=== PATIENT | female | born 1990 | race Caucasian/White ===

== ENCOUNTER 2018-04-09 00:03 | Inpatient (IN) | payer BC ==
[2018-04-09] MEDS ORDERED: Butorphanol 1 MG/ML SDV IVPUSH PRN (00:28)
[2018-04-09] MEDS ORDERED: Water For Irrigation,Sterile 1,000 ML Container IRR PRN (00:28)
[2018-04-09] MEDS ORDERED: Misoprostol 200 MCG Tab PO PRN (00:28)
[2018-04-09] MEDS ORDERED: Tranexamic Acid 1,000 MG in Sodium Chloride 0.9% 100 ML IV PRN (00:28)
[2018-04-09] MEDS ORDERED: Sodium Chloride 0.9% 10 ML Syringe FLUSH PRN (00:28)
[2018-04-09] MEDS ORDERED: Nalbuphine 10 MG/1 ML Vial IVPUSH PRN (00:28)
[2018-04-09] MEDS ORDERED: Terbutaline 1 MG/ML SDV SUBCUT PRN (00:28)
[2018-04-09] MEDS ORDERED: Sodium Chloride 0.9% 2.5 ML Syringe FLUSH PRN (00:28)
[2018-04-09] MEDS ORDERED: Lidocaine 1% 50 ML MDV INJECT PRN (00:28)
[2018-04-09] MEDS ORDERED: Ondansetron 4 MG/2 ML SDV IV PRN (00:28)
[2018-04-09] MEDS ORDERED: Carboprost Tromethamine 250 MCG/1 ML Amp IM PRN (00:28)
[2018-04-09] MEDS ORDERED: Methylergonovine 0.2 MG/1 ML Amp IM PRN (00:28)
[2018-04-09] MEDS ORDERED: Oxytocin/0.9 % Sodium Chloride 30 UNIT/500 ML BAG IV SCH ×2 (00:30)
[2018-04-09] MEDS: Misoprostol 25 MCG (1/4 of 100 MCG) Tab VAG PRN ×2 (00:53→05:05)
[2018-04-09] MEDS: Lactated Ringers 1,000 ML IV SCH ×3 (12:25→20:21)
[2018-04-09] MEDS ORDERED: Ropivacaine 0.2% 2 MG/ML 20 ML SDV ONE (15:54)
[2018-04-09] MEDS ORDERED: Acetaminophen 500 MG Tab PO ONE (20:02)
[2018-04-09] MEDS ORDERED: Ampicillin 2 GM in Sodium Chloride 0.9% 100 ML IV ONE (20:02)
[2018-04-09] MEDS ORDERED: Acetaminophen 1,000 MG in Premix Bag 1 BAG IV ONE (22:46)
[2018-04-09] MEDS ORDERED: Clindamycin Phosphate in D5W 900 MG in Premix Bag 1 BAG IV ONE ×2 (23:52)
[2018-04-10] MEDS ORDERED: Lidocaine 2% 5 ML SDV ONE (00:14)
[2018-04-10] MEDS ORDERED: Oxytocin 10 Units/1 ML SDV ONE ×3 (00:14→01:42)
[2018-04-10] MEDS ORDERED: Ondansetron 4 MG/2 ML SDV ONE (00:14)
[2018-04-10] MEDS ORDERED: Propofol 200 MG/20 ML SDV ONE (00:15)
[2018-04-10] MEDS ORDERED: Morphine PF 1 MG/ML Amp ONE (01:05)
[2018-04-10] MEDS ORDERED: fentaNYL 100 MCG/2 ML SDV IVPUSH PRN (01:10)
[2018-04-10] MEDS ORDERED: Sodium Chloride 0.9% 20 ML ONE (01:10)
[2018-04-10] MEDS ORDERED: Acetaminophen/oxyCODONE 325-5 MG Tab PO PRN ×3 (01:10→02:06)
[2018-04-10] MEDS ORDERED: Nalbuphine 10 MG/1 ML Vial IVPUSH PRN (01:10)
--- NOTE | 2018-04-10 01:14 | PCM.PREANE ---
Preanesthetic Assessment - Anesthesia/Transfusion/Family Hx Anesthesia History: Prior Anesthesia Without Reaction Family History of Anesthesia Reaction: No Transfusion History: No Prior Transfusion(s) - Review of Systems General: No Symptoms Pulmonary: No Symptoms Cardiovascular: No Symptoms Gastrointestinal: No Symptoms Neurological: No Symptoms Other: Reports: None - Physical Assessment NPO Status Date: 04/09/18 NPO Status Time: 14:00 (clear liq) Temperature: 38.8 C Vital Signs: Last Vital Signs Temp 38.8 C H 04/09/18 20:18 Pulse Resp BP Pulse Ox Height: 1.7 m Weight: 93.894 kg ASA Class: 2 Mental Status: Alert & Oriented x3 Airway Class: Mallampati = 1 Dentition: Reports: Normal Dentition ROM/Head Extension: Full Lungs: Clear to Auscultation, Normal Respiratory Effort - Lab Values: Laboratory Last Values WBC 7.11 K/uL (4.0-11.0) 04/09/18 00:44 RBC 4.50 M/uL (4.30-5.90) 04/09/18 00:44 Hgb 13.4 g/dL (12.0-16.0) 04/09/18 00:44 Hct 40.0 % (36.0-46.0) 04/09/18 00:44 MCV 88.9 fL (80.0-98.0) 04/09/18 00:44 MCH 29.8 pg (27.0-32.0) 04/09/18 00:44 MCHC 33.5 g/dL (31.0-37.0) 04/09/18 00:44 RDW Std Deviation 42.9 fl (28.0-62.0) 04/09/18 00:44 RDW Coeff of Naveen 14 % (11.0-15.0) 04/09/18 00:44 Plt Count 167 K/uL (150-400) 04/09/18 00:44 MPV 10.30 fL (7.40-12.00) 04/09/18 00:44 Blood Type O POSITIVE 04/09/18 00:44 Antibody Screen NEGATIVE 04/09/18 00:44 - Allergies Allergies/Adverse Reactions: Allergies Allergy/AdvReac Type Severity Reaction Status Date / Time No Known Allergies Allergy Verified 04/09/18 00:35 - Acknowledgements Anesthesia Type Planned: Epidural Pt an Appropriate Candidate for the Planned Anesthesia: Yes Alternatives and Risks of Anesthesia Discussed w Pt/Guardian: Yes Pt/Guardian Understands and Agrees with Anesthesia Plan: Yes Additional Comments: term preg, primip, no gest probs, pmh-neg. 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: Reports: - Past Surgical History HEENT Surgical History: Reports: Oral Surgery Other HEENT Surgeries/Procedures: tubes x5 in ears; holes in eardrums GI Surgical History: Reports: None - SUBSTANCE USE Smoking Status *Q: Never Smoker Recreational Drug Use History: No - HOME MEDS Home Medications: Home Meds Calcium Carbonate [Tums] 1 tab PO PRN 04/09/18 [History] Ferrous Sulfate, Dried [Iron] 1 tab PO DAILY 04/09/18 [History] PNV95/Ferrous Fumarate/FA [ Tablet] 1 tab PO DAILY 04/09/18 [History] - CURRENT (IN HOUSE) MEDS Current Meds: Current Medications Butorphanol Tartrate (Stadol) 1 mg IVPUSH Q1H PRN PRN Reason: Pain Carboprost Tromethamine (Hemabate Ds) 250 mcg IM ASDIRECTED PRN PRN Reason: Post Hemorrhage Lactated Ringer's (Ringers, Lactated) 1,000 mls @ 150 mls/hr IV ASDIRECTED SHANNA Last Admin: 04/09/18 20:21 Dose: 150 mls/hr Oxytocin/Sodium Chloride (Oxytocin 30 Unit/500 Ml-Ns) 30 unit in 500 mls @ 999 mls/hr IV TITRATE SHANNA Oxytocin/Sodium Chloride (Oxytocin 30 Unit/500 Ml-Ns) 30 unit in 500 mls @ 2 mls/hr IV TITRATE SHANNA; Protocol Last Titration: 04/09/18 23:49 Dose: 0 munits/min, 0 mls/hr Tranexamic Acid 1,000 mg/ (Sodium Chloride) 110 mls @ 660 mls/hr IV ONETIME PRN PRN Reason: Bleeding Lidocaine HCl (Xylocaine 1%) 50 ml INJECT ONETIME PRN PRN Reason: Laceration repair Methylergonovine Maleate (Methergine) 0.2 mg IM ASDIRECTED PRN PRN Reason: Post Hemorrhage Misoprostol (Cytotec) 200 mcg PO ONETIME PRN PRN Reason: Post Hemorrhage Misoprostol (Cytotec) 25 mcg VAG Q4H PRN PRN Reason: Cervical Ripening Last Admin: 04/09/18 05:05 Dose: 25 mcg Nalbuphine HCl (Nubain) 10 mg IVPUSH Q1H PRN PRN Reason: Pain (severe 7-10) Ondansetron HCl (Zofran) 4 mg IV Q6H PRN PRN Reason: Nausea/Vomiting Sodium Chloride (Saline Flush) 10 ml FLUSH ASDIRECTED PRN PRN Reason: Keep Vein Open Sodium Chloride (Saline Flush) 2.5 ml FLUSH ASDIRECTED PRN PRN Reason: Keep Vein Open Sterile Water (Sterile Water For Irrigation) 1,000 ml IRR ASDIRECTED PRN PRN Reason: delivery Terbutaline Sulfate (Brethine) 0.25 mg SUBCUT ASDIRECTED PRN PRN Reason: Tacysystole Discontinued Medications Acetaminophen (Tylenol Extra Strength) 1,000 mg PO ONETIME ONE Stop: 04/09/18 20:03 Last Admin: 04/09/18 20:18 Dose: 1,000 mg Fentanyl/Bupivacaine HCl (Tmfsajla-Kvmys-Sn 2 Mcg/Ml-0.125%) Confirm Administered Dose 100 mls @ as directed EP .STK-MED ONE Stop: 04/09/18 15:54 Ampicillin Sodium 2 gm/ Sodium (Chloride) 100 mls @ 200 mls/hr IV ONETIME ONE Stop: 04/09/18 20:31 Last Admin: 04/09/18 20:17 Dose: 200 mls/hr Gentamicin Sulfate 100 mg/ (Sodium Chloride) 52.5 mls @ 100 mls/hr IV ONETIME ONE Stop: 04/09/18 20:34 Last Admin: 04/09/18 20:50 Dose: 100 mls/hr Acetaminophen 1,000 mg/ Premix 100 mls @ 400 mls/hr IV NOW ONE Stop: 04/09/18 23:00 Last Admin: 04/09/18 23:20 Dose: 400 mls/hr Clindamycin Phosphate 900 mg/ (Premix) 50 mls @ 100 mls/hr IV ONETIME ONE Stop: 04/10/18 00:21 Last Admin: 04/10/18 00:06 Dose: 100 mls/hr Lidocaine (Xylocaine-Mpf 2%) Confirm Administered Dose 15 ml .ROUTE .STK-MED ONE Stop: 04/10/18 00:15 Morphine Sulfate (Duramorph Pf) Confirm Administered Dose 1 mg .ROUTE .STK-MED ONE Stop: 04/10/18 01:06 Ondansetron HCl (Zofran) Confirm Administered Dose 4 mg .ROUTE .STK-MED ONE Stop: 04/10/18 00:15 Oxytocin (Pitocin) Confirm Administered Dose 20 unit .ROUTE .STK-MED ONE Stop: 04/10/18 00:15 Propofol (Diprivan 20 Ml) Confirm Administered Dose 200 mg .ROUTE .STK-MED ONE Stop: 04/10/18 00:16 Ropivacaine (Naropin 0.2%) Confirm Administered Dose 20 ml .ROUTE .STK-MED ONE Stop: 04/09/18 15:55
--- NOTE | 2018-04-10 01:16 | PCM.SN ---
- Free Text/Narrative Note: csection scheduled for FTP/first stage labor arrest, 6 cm, baby fine but does not tolerate pitocin, NPO x for sips of water, Will top off working epidural with 20 ml of 2% lidocaine, and follow delivery with epidural duramorph.
[2018-04-10] MEDS ORDERED: Midazolam 1 MG/ML 2 ML SDV ONE (01:23)
[2018-04-10] MEDS ORDERED: fentaNYL 100 MCG/2 ML SDV ONE (01:30)
[2018-04-10] MEDS ORDERED: Bupivacaine 0.25% 10 ML SDV ONE (02:01)
[2018-04-10] MEDS ORDERED: Lanolin 100% Cream 7 GM Tube TOP PRN (02:06)
[2018-04-10] MEDS ORDERED: Bisacodyl 10 MG Supp RECTAL PRN (02:06)
[2018-04-10] MEDS ORDERED: Ondansetron 4 MG/2 ML SDV IV PRN (02:06)
[2018-04-10] MEDS ORDERED: diphenhydrAMINE 50 MG/ML SDV IVPUSH PRN (02:06)
[2018-04-10] MEDS ORDERED: Lactated Ringers 1,000 ML IV SCH (02:15)
--- NOTE | 2018-04-10 02:15 | PCM.OPNOTE ---
- General Post-Op/Procedure Note Date of Surgery/Procedure: 04/10/18 Operative Procedure(s): Primary lower transverse Findings: Live male delivered at 0059pm , 8/9 Weight 3640g , 3VC noted Pre Op Diagnosis: 28 yo @ 41w0d with Cat 2 FHT and Protracted labor Post-Op Diagnosis: same Anesthesia Technique: Epidural Primary Surgeon: Reji Lee Anesthesia Provider: Mandeep Wiggins Pathology: Placenta Fluid Replacement, Intraop: 2,100 Output, Urine Amount: 50 EBL in mLs: 800 Complications: None Condition: Good Free Text/Narrative:: Normal uterus , tubes and ovaries Uterus repaired in 2 layers Peritoneum closed
[2018-04-10] MEDS: Ketorolac 30 MG/ML SDV IVPUSH SCH ×4 (02:35→19:42)
--- NOTE | 2018-04-10 02:41 | PCM.POSTAN ---
POST ANESTHESIA ASSESSMENT - MENTAL STATUS Mental Status: Alert - VITAL SIGNS Pulse Rate: 122 SaO2: 96 Resp Rate: 20 Blood Pressure: 120/66 - RESPIRATORY Respiratory Status: Respiratory Rate WNL - CARDIOVASCULAR CV Status: Pulse Rate WNL - GASTROINTESTINAL GI Status: No Symptoms - PAIN Pain Score: 1 (Slight soreness. Toradol given in RR.) Free Text/Narrative:: Ache lessened with 0.25% Marcaine prior to catheter removal. Doing well. No problems at present. - POST OP HYDRATION Hydration Status: Adequate & Stable (Stable for discharge.)
--- NOTE | 2018-04-10 06:06 | PCM48HPAN ---
Post Anesthesia Note - EVALUATION WITHIN 48HRS OF ANESTHETIC Vital Signs in Normal Range: Yes Patient Participated in Evaluation: Yes Respiratory Function Stable: Yes Airway Patent: Yes Cardiovascular Function Stable: Yes Hydration Status Stable: Yes Pain Control Satisfactory: Yes Nausea and Vomiting Control Satisfactory: Yes Mental Status Recovered: Yes Pulse Rate: 89 SaO2: 96 Resp Rate: 20 Temperature: 38.8 C Blood Pressure: 104/59 - COMMENTS/OBSERVATIONS Free Text/Narrative:: Doing well. Pain well controlled. No problems noted.
[2018-04-10] MEDS ORDERED: Ampicillin/Sulbactam Na 3 GM in Sodium Chloride 0.9% 100 ML IV SCH (08:00)
[2018-04-10] MEDS: Ampicillin/Sulbactam Na 3 GM in Sodium Chloride 0.9% 100 ML IV SCH ×3 (08:32→20:11)
[2018-04-10] MEDS: Docusate Sodium 100 MG Cap PO SCH ×2 (08:54→21:43)
--- NOTE | 2018-04-10 10:52 | OR ---
SURGEON: SUYS RIVERS DATE OF PROCEDURE: 04/10/2018 PROCEDURE PERFORMED: Primary low transverse section. PREOPERATIVE DIAGNOSES: 1. A 28-year-old 1, para 0 at 41 weeks undergoing induction of labor. 2. Primary section secondary to category 2 heart tracing. 3. Chorioamnionitis. 4. Protracted labor. POSTOPERATIVE DIAGNOSES: 1. A 28-year-old 1, para 0 at 41 weeks undergoing induction of labor. 2. Primary section secondary to category 2 heart tracing. 3. Chorioamnionitis. 4. Protracted labor. FINDINGS: Live male delivered at 0059 hours. scores 8 and 9. Weight is 3640 g. ESTIMATED BLOOD LOSS: 800 mL. ANESTHESIA: Epidural. URINE OUTPUT: 60 mL. BRIEF HISTORY ABOUT PATIENT: She is a 28-year-old at 41 weeks 0 days, who was admitted for induction of labor. The patient received 2 doses of Cytotec. She received a Blackwell balloon, she was about 5 cm dilated, Her amniotic fluid was ruptured, and clear fluid was noted at that time. Pitocin was started. The patient had Pitocin titrated up and had indeterminate baseline and late deceleration. Pitocin was shut off. Tracing then became category 1. Piton was then started again . Then, the patient was noted to have fever with temperature of 101. The patient was given ampicillin and gentamicin. . With Pitocin restarted again,The patient was noted to have late deceleration. Vaginal exam was still about 6, 90, and -2. As a result of category 2 heart tracing and protracted labor the patient was consented for and primary was recommended. The patient was given a chance to ask questions. She accepted and agreed for the . DESCRIPTION OF PROCEDURE: The patient was taken to the operating room, where an epidural anesthesia was topped off. She was placed into dorsal supine position with a leftward tilt. A Pfannenstiel skin incision was made with a scalpel and carried down to the fascia with the Bovie. The fascia was incised and extended laterally. The Deysi was used to grasp the anterior-superior part of the fascia, which was then off the rectus muscles superiorly and inferiorly. The rectus muscle was in the midline to the level of the pubic symphysis. The peritoneum was entered bluntly. The bladder flap was created. The Yasir retractor was also placed to help expose the lower uterine segment . The uterine incision was made and was extended upward and laterally. The fetus was in vertex position and was brought to the level of the incision. Fundal pressure was applied. The fetus was cephalic presentation. The head was delivered, and the anterior and posterior shoulders were delivered. The was suctioned and was handed over to the awaiting surtass analyst. The placenta was delivered. The uterus was cleaned with moist laparotomy sponges. The uterine incision was closed in 2 layers. The peritoneum was closed with 2-0 Vicryl, and the fascia was closed with 0 Vicryl. The skin was closed with 3-0 Monocryl on a Massimo needle. All instrument and pad counts were correct x2. ORLANDO REEVES /[id number] MTDD
[2018-04-11] MEDS: Ketorolac 30 MG/ML SDV IVPUSH SCH (01:51)
[2018-04-11] MEDS: Ampicillin/Sulbactam Na 3 GM in Sodium Chloride 0.9% 100 ML IV SCH (02:09)
[2018-04-11] MEDS ORDERED: Ibuprofen 800 MG Tab PO PRN (08:00)
[2018-04-11] MEDS: Docusate Sodium 100 MG Cap PO SCH ×2 (12:11→21:05)
--- NOTE | 2018-04-12 08:25 | PCM.PNPP ---
- General Info Date of Service: 04/11/18 Admission Dx/Problem (Free Text): 28 yo P1 s/p Primary LTCS Subjective Update: Patient denies any complains today. she is ambulating ,tolerating regular diet Functional Status: Reports: Pain Controlled, Tolerating Diet, Ambulating, Urinating - Review of Systems General: Reports: No Symptoms HEENT: Reports: No Symptoms Pulmonary: Reports: No Symptoms Cardiovascular: Reports: No Symptoms Gastrointestinal: Reports: No Symptoms Genitourinary: Reports: No Symptoms Musculoskeletal: Reports: No Symptoms Skin: Reports: No Symptoms Neurological: Reports: No Symptoms Psychiatric: Reports: No Symptoms - General Info Date of Service: 04/12/18 - Patient Data Vital Signs - Most Recent: Last Vital Signs Temp 36.6 C 04/12/18 04:00 Pulse 98 04/12/18 04:00 Resp 16 04/12/18 04:00 BP 117/76 04/12/18 04:00 Pulse Ox 98 04/12/18 04:00 Weight - Most Recent: 93.894 kg Med Orders - Current: Current Medications Bisacodyl (Dulcolax) 10 mg RECTAL ONETIME PRN PRN Reason: Constipation Butorphanol Tartrate (Stadol) 1 mg IVPUSH Q1H PRN PRN Reason: Pain Carboprost Tromethamine (Hemabate Ds) 250 mcg IM ASDIRECTED PRN PRN Reason: Post Hemorrhage Diphenhydramine HCl (Benadryl) 25 mg IVPUSH Q6H PRN PRN Reason: Itching or Nausea Docusate Sodium (Colace) 100 mg PO BID SHANNA Last Admin: 04/11/18 21:05 Dose: 100 mg Emollient Ointment (Lansinoh Hpa) 0 gm TOP ASDIRECTED PRN PRN Reason: Sore Nipples Lactated Ringer's (Ringers, Lactated) 1,000 mls @ 150 mls/hr IV ASDIRECTED SHANNA Last Admin: 04/09/18 20:21 Dose: 150 mls/hr Oxytocin/Sodium Chloride (Oxytocin 30 Unit/500 Ml-Ns) 30 unit in 500 mls @ 999 mls/hr IV TITRATE SHANNA Oxytocin/Sodium Chloride (Oxytocin 30 Unit/500 Ml-Ns) 30 unit in 500 mls @ 2 mls/hr IV TITRATE SHANNA; Protocol Last Titration: 04/09/18 23:49 Dose: 0 munits/min, 0 mls/hr Tranexamic Acid 1,000 mg/ (Sodium Chloride) 110 mls @ 660 mls/hr IV ONETIME PRN PRN Reason: Bleeding Lactated Ringer's (Ringers, Lactated) 1,000 mls @ 125 mls/hr IV ASDIRECTED SHANNA Last Admin: 04/10/18 08:34 Dose: 125 mls/hr Ibuprofen (Motrin) 800 mg PO Q8H PRN PRN Reason: mild pain or fever Lidocaine HCl (Xylocaine 1%) 50 ml INJECT ONETIME PRN PRN Reason: Laceration repair Methylergonovine Maleate (Methergine) 0.2 mg IM ASDIRECTED PRN PRN Reason: Post Hemorrhage Misoprostol (Cytotec) 200 mcg PO ONETIME PRN PRN Reason: Post Hemorrhage Ondansetron HCl (Zofran) 4 mg IV Q6H PRN PRN Reason: Nausea/Vomiting Ondansetron HCl (Zofran) 4 mg IV Q4H PRN PRN Reason: Nausea/Vomiting Oxycodone/Acetaminophen (Percocet 325-5 Mg) 1 tab PO Q4H PRN PRN Reason: Pain (moderate 4-6) Oxycodone/Acetaminophen (Percocet 325-5 Mg) 2 tab PO Q4H PRN PRN Reason: Pain (moderate 4-6) Sodium Chloride (Saline Flush) 10 ml FLUSH ASDIRECTED PRN PRN Reason: Keep Vein Open Sodium Chloride (Saline Flush) 2.5 ml FLUSH ASDIRECTED PRN PRN Reason: Keep Vein Open Sterile Water (Sterile Water For Irrigation) 1,000 ml IRR ASDIRECTED PRN PRN Reason: delivery Discontinued Medications Acetaminophen (Tylenol Extra Strength) 1,000 mg PO ONETIME ONE Stop: 04/09/18 20:03 Last Admin: 04/09/18 20:18 Dose: 1,000 mg Bupivacaine HCl (Sensorcaine-Mpf 0.25%) Confirm Administered Dose 10 ml .ROUTE .STK-MED ONE Stop: 04/10/18 02:02 Fentanyl (Sublimaze) 50 mcg IVPUSH Q5M PRN PRN Reason: Pain (severe 7-10) Stop: 04/11/18 01:10 Fentanyl (Sublimaze) Confirm Administered Dose 100 mcg .ROUTE .STK-MED ONE Stop: 04/10/18 01:31 Fentanyl/Bupivacaine HCl (Jqdddite-Dcjbs-Dh 2 Mcg/Ml-0.125%) Confirm Administered Dose 100 mls @ as directed EP .STK-MED ONE Stop: 04/09/18 15:54 Last Admin: 04/11/18 19:31 Dose: Not Given Ampicillin Sodium 2 gm/ Sodium (Chloride) 100 mls @ 200 mls/hr IV ONETIME ONE Stop: 04/09/18 20:31 Last Admin: 04/09/18 20:17 Dose: 200 mls/hr Gentamicin Sulfate 100 mg/ (Sodium Chloride) 52.5 mls @ 100 mls/hr IV ONETIME ONE Stop: 04/09/18 20:34 Last Admin: 04/09/18 20:50 Dose: 100 mls/hr Acetaminophen 1,000 mg/ Premix 100 mls @ 400 mls/hr IV NOW ONE Stop: 04/09/18 23:00 Last Admin: 04/09/18 23:20 Dose: 400 mls/hr Clindamycin Phosphate 900 mg/ (Premix) 50 mls @ 100 mls/hr IV ONETIME ONE Stop: 04/10/18 00:21 Last Admin: 04/10/18 00:06 Dose: 100 mls/hr Sodium Chloride (Normal Saline) Confirm Administered Dose 20 mls @ as directed .ROUTE .STK-MED ONE Stop: 04/10/18 01:11 Ampicillin Sodium/Sulbactam (Sodium 3 gm/ Sodium Chloride) 100 mls @ 200 mls/ hr IV Q6H SHANNA Stop: 04/11/18 02:29 Ampicillin Sodium/Sulbactam (Sodium 3 gm/ Sodium Chloride) 100 mls @ 200 mls/ hr IV Q6H SHANNA Stop: 04/11/18 02:29 Last Admin: 04/11/18 02:09 Dose: 200 mls/hr Ketorolac Tromethamine (Toradol) 30 mg IVPUSH Q6H [facility] Stop: 04/11/18 02:16 Last Admin: 04/11/18 01:51 Dose: 30 mg Lidocaine (Xylocaine-Mpf 2%) Confirm Administered Dose 15 ml .ROUTE .STK-MED ONE Stop: 04/10/18 00:15 Midazolam HCl (Versed 1 Mg/Ml) Confirm Administered Dose 2 mg .ROUTE .STK-MED ONE Stop: 04/10/18 01:24 Misoprostol (Cytotec) 25 mcg VAG Q4H PRN PRN Reason: Cervical Ripening Last Admin: 04/09/18 05:05 Dose: 25 mcg Morphine Sulfate (Duramorph Pf) Confirm Administered Dose 1 mg .ROUTE .STK-MED ONE Stop: 04/10/18 01:06 Nalbuphine HCl (Nubain) 10 mg IVPUSH Q1H PRN PRN Reason: Pain (severe 7-10) Nalbuphine HCl (Nubain) 2.5 mg IVPUSH Q3H PRN PRN Reason: Pruritis Stop: 04/11/18 01:11 Ondansetron HCl (Zofran) Confirm Administered Dose 4 mg .ROUTE .STK-MED ONE Stop: 04/10/18 00:15 Oxycodone/Acetaminophen (Percocet 325-5 Mg) 1 tab PO ONETIME PRN PRN Reason: Pain (moderate 4-6) Oxytocin (Pitocin) Confirm Administered Dose 20 unit .ROUTE .STK-MED ONE Stop: 04/10/18 00:15 Oxytocin (Pitocin) Confirm Administered Dose 10 unit .ROUTE .STK-MED ONE Stop: 04/10/18 01:43 Oxytocin (Pitocin) Confirm Administered Dose 10 unit .ROUTE .STK-MED ONE Stop: 04/10/18 01:43 Propofol (Diprivan 20 Ml) Confirm Administered Dose 200 mg .ROUTE .STK-MED ONE Stop: 04/10/18 00:16 Ropivacaine (Naropin 0.2%) Confirm Administered Dose 20 ml .ROUTE .STK-MED ONE Stop: 04/09/18 15:55 Last Admin: 04/11/18 19:31 Dose: Not Given Terbutaline Sulfate (Brethine) 0.25 mg SUBCUT ASDIRECTED PRN PRN Reason: Tacysystole - Infant Interaction Support Person: - Recovery Exam Fundal Tone: Firm Fundal Level: At Umbilicus Fundal Placement: Midline Lochia Amount: Scant Lochia Color: Rubra/Red Perineum Description: Intact, Minimal Bruising/Swelling Episiotomy/Laceration: None Bladder Status: Voiding Urinary Elimination: Voided - Exam General: Alert HEENT: Pupils Equal Neck: Supple Lungs: Clear to Auscultation Cardiovascular: Regular Rate, Regular Rhythm GI/Abdominal Exam: Normal Bowel Sounds Extremities: Normal Inspection Skin: Warm Psy/Mental Status: Alert - Problem List & Annotations (1) S/P primary low transverse SNOMED Code(s): 434295774, [id number], [id number], [id number], [id number] Code(s): Z98.891 - HISTORY OF UTERINE SCAR FROM PREVIOUS SURGERY Status: Acute Current Visit: Yes - Problem List Review Problem List Initiated/Reviewed/Updated: Yes - My Orders Last 24 Hours: My Active Orders 04/11/18 08:00 Ibuprofen [Motrin] 800 mg PO Q8H PRN - Assessment Assessment:: 28yo P1 s/p primary LTCS POD 1 - Plan Plan:: Pain control Ambulate Venodynes Discharge tomorrow
--- NOTE | 2018-04-12 08:28 | PCM.PNPP ---
- General Info Date of Service: 04/12/18 Admission Dx/Problem (Free Text): 28 yo P1 s/p Primary LTCS Subjective Update: Patient denies any complains today. she is ambulating ,tolerating regular diet Functional Status: Reports: Pain Controlled, Tolerating Diet, Ambulating - Review of Systems General: Reports: No Symptoms HEENT: Reports: No Symptoms Pulmonary: Reports: No Symptoms Cardiovascular: Reports: No Symptoms Gastrointestinal: Reports: No Symptoms Genitourinary: Reports: No Symptoms Musculoskeletal: Reports: No Symptoms Skin: Reports: No Symptoms Neurological: Reports: No Symptoms Psychiatric: Reports: No Symptoms - General Info Date of Service: 04/12/18 - Patient Data Vital Signs - Most Recent: Last Vital Signs Temp 36.6 C 04/12/18 04:00 Pulse 98 04/12/18 04:00 Resp 16 04/12/18 04:00 BP 117/76 04/12/18 04:00 Pulse Ox 98 04/12/18 04:00 Weight - Most Recent: 93.894 kg Med Orders - Current: Current Medications Bisacodyl (Dulcolax) 10 mg RECTAL ONETIME PRN PRN Reason: Constipation Butorphanol Tartrate (Stadol) 1 mg IVPUSH Q1H PRN PRN Reason: Pain Carboprost Tromethamine (Hemabate Ds) 250 mcg IM ASDIRECTED PRN PRN Reason: Post Hemorrhage Diphenhydramine HCl (Benadryl) 25 mg IVPUSH Q6H PRN PRN Reason: Itching or Nausea Docusate Sodium (Colace) 100 mg PO BID SHANNA Last Admin: 04/11/18 21:05 Dose: 100 mg Emollient Ointment (Lansinoh Hpa) 0 gm TOP ASDIRECTED PRN PRN Reason: Sore Nipples Lactated Ringer's (Ringers, Lactated) 1,000 mls @ 150 mls/hr IV ASDIRECTED SHANNA Last Admin: 04/09/18 20:21 Dose: 150 mls/hr Oxytocin/Sodium Chloride (Oxytocin 30 Unit/500 Ml-Ns) 30 unit in 500 mls @ 999 mls/hr IV TITRATE SHANNA Oxytocin/Sodium Chloride (Oxytocin 30 Unit/500 Ml-Ns) 30 unit in 500 mls @ 2 mls/hr IV TITRATE SHANNA; Protocol Last Titration: 04/09/18 23:49 Dose: 0 munits/min, 0 mls/hr Tranexamic Acid 1,000 mg/ (Sodium Chloride) 110 mls @ 660 mls/hr IV ONETIME PRN PRN Reason: Bleeding Lactated Ringer's (Ringers, Lactated) 1,000 mls @ 125 mls/hr IV ASDIRECTED SHANNA Last Admin: 04/10/18 08:34 Dose: 125 mls/hr Ibuprofen (Motrin) 800 mg PO Q8H PRN PRN Reason: mild pain or fever Lidocaine HCl (Xylocaine 1%) 50 ml INJECT ONETIME PRN PRN Reason: Laceration repair Methylergonovine Maleate (Methergine) 0.2 mg IM ASDIRECTED PRN PRN Reason: Post Hemorrhage Misoprostol (Cytotec) 200 mcg PO ONETIME PRN PRN Reason: Post Hemorrhage Ondansetron HCl (Zofran) 4 mg IV Q6H PRN PRN Reason: Nausea/Vomiting Ondansetron HCl (Zofran) 4 mg IV Q4H PRN PRN Reason: Nausea/Vomiting Oxycodone/Acetaminophen (Percocet 325-5 Mg) 1 tab PO Q4H PRN PRN Reason: Pain (moderate 4-6) Oxycodone/Acetaminophen (Percocet 325-5 Mg) 2 tab PO Q4H PRN PRN Reason: Pain (moderate 4-6) Sodium Chloride (Saline Flush) 10 ml FLUSH ASDIRECTED PRN PRN Reason: Keep Vein Open Sodium Chloride (Saline Flush) 2.5 ml FLUSH ASDIRECTED PRN PRN Reason: Keep Vein Open Sterile Water (Sterile Water For Irrigation) 1,000 ml IRR ASDIRECTED PRN PRN Reason: delivery Discontinued Medications Acetaminophen (Tylenol Extra Strength) 1,000 mg PO ONETIME ONE Stop: 04/09/18 20:03 Last Admin: 04/09/18 20:18 Dose: 1,000 mg Bupivacaine HCl (Sensorcaine-Mpf 0.25%) Confirm Administered Dose 10 ml .ROUTE .STK-MED ONE Stop: 04/10/18 02:02 Fentanyl (Sublimaze) 50 mcg IVPUSH Q5M PRN PRN Reason: Pain (severe 7-10) Stop: 04/11/18 01:10 Fentanyl (Sublimaze) Confirm Administered Dose 100 mcg .ROUTE .STK-MED ONE Stop: 04/10/18 01:31 Fentanyl/Bupivacaine HCl (Lrevkncj-Vbuae-Yp 2 Mcg/Ml-0.125%) Confirm Administered Dose 100 mls @ as directed EP .STK-MED ONE Stop: 04/09/18 15:54 Last Admin: 04/11/18 19:31 Dose: Not Given Ampicillin Sodium 2 gm/ Sodium (Chloride) 100 mls @ 200 mls/hr IV ONETIME ONE Stop: 04/09/18 20:31 Last Admin: 04/09/18 20:17 Dose: 200 mls/hr Gentamicin Sulfate 100 mg/ (Sodium Chloride) 52.5 mls @ 100 mls/hr IV ONETIME ONE Stop: 04/09/18 20:34 Last Admin: 04/09/18 20:50 Dose: 100 mls/hr Acetaminophen 1,000 mg/ Premix 100 mls @ 400 mls/hr IV NOW ONE Stop: 04/09/18 23:00 Last Admin: 04/09/18 23:20 Dose: 400 mls/hr Clindamycin Phosphate 900 mg/ (Premix) 50 mls @ 100 mls/hr IV ONETIME ONE Stop: 04/10/18 00:21 Last Admin: 04/10/18 00:06 Dose: 100 mls/hr Sodium Chloride (Normal Saline) Confirm Administered Dose 20 mls @ as directed .ROUTE .STK-MED ONE Stop: 04/10/18 01:11 Ampicillin Sodium/Sulbactam (Sodium 3 gm/ Sodium Chloride) 100 mls @ 200 mls/ hr IV Q6H SHANNA Stop: 04/11/18 02:29 Ampicillin Sodium/Sulbactam (Sodium 3 gm/ Sodium Chloride) 100 mls @ 200 mls/ hr IV Q6H SHANNA Stop: 04/11/18 02:29 Last Admin: 04/11/18 02:09 Dose: 200 mls/hr Ketorolac Tromethamine (Toradol) 30 mg IVPUSH Q6H [facility] Stop: 04/11/18 02:16 Last Admin: 04/11/18 01:51 Dose: 30 mg Lidocaine (Xylocaine-Mpf 2%) Confirm Administered Dose 15 ml .ROUTE .STK-MED ONE Stop: 04/10/18 00:15 Midazolam HCl (Versed 1 Mg/Ml) Confirm Administered Dose 2 mg .ROUTE .STK-MED ONE Stop: 04/10/18 01:24 Misoprostol (Cytotec) 25 mcg VAG Q4H PRN PRN Reason: Cervical Ripening Last Admin: 04/09/18 05:05 Dose: 25 mcg Morphine Sulfate (Duramorph Pf) Confirm Administered Dose 1 mg .ROUTE .STK-MED ONE Stop: 04/10/18 01:06 Nalbuphine HCl (Nubain) 10 mg IVPUSH Q1H PRN PRN Reason: Pain (severe 7-10) Nalbuphine HCl (Nubain) 2.5 mg IVPUSH Q3H PRN PRN Reason: Pruritis Stop: 04/11/18 01:11 Ondansetron HCl (Zofran) Confirm Administered Dose 4 mg .ROUTE .STK-MED ONE Stop: 04/10/18 00:15 Oxycodone/Acetaminophen (Percocet 325-5 Mg) 1 tab PO ONETIME PRN PRN Reason: Pain (moderate 4-6) Oxytocin (Pitocin) Confirm Administered Dose 20 unit .ROUTE .STK-MED ONE Stop: 04/10/18 00:15 Oxytocin (Pitocin) Confirm Administered Dose 10 unit .ROUTE .STK-MED ONE Stop: 04/10/18 01:43 Oxytocin (Pitocin) Confirm Administered Dose 10 unit .ROUTE .STK-MED ONE Stop: 04/10/18 01:43 Propofol (Diprivan 20 Ml) Confirm Administered Dose 200 mg .ROUTE .STK-MED ONE Stop: 04/10/18 00:16 Ropivacaine (Naropin 0.2%) Confirm Administered Dose 20 ml .ROUTE .STK-MED ONE Stop: 04/09/18 15:55 Last Admin: 04/11/18 19:31 Dose: Not Given Terbutaline Sulfate (Brethine) 0.25 mg SUBCUT ASDIRECTED PRN PRN Reason: Tacysystole - Interaction Support Person: - Recovery Exam Fundal Tone: Firm Fundal Level: At Umbilicus Fundal Placement: Midline Lochia Amount: Scant Lochia Color: Rubra/Red Perineum Description: Intact, Minimal Bruising/Swelling Episiotomy/Laceration: None Bladder Status: Voiding Urinary Elimination: Voided - Exam General: Alert HEENT: Pupils Equal Neck: Supple Lungs: Clear to Auscultation Cardiovascular: Regular Rate, Regular Rhythm GI/Abdominal Exam: Normal Bowel Sounds Extremities: Normal Inspection (pfannestiel skin incision c/d/i) Wound/Incisions: Dressing Dry and Intact - Problem List & Annotations (1) S/P primary low transverse SNOMED Code(s): 857261900, 46398577, 442399539, [id number], 508154189 Code(s): Z98.891 - HISTORY OF UTERINE SCAR FROM PREVIOUS SURGERY Status: Acute Current Visit: Yes - Problem List Review Problem List Initiated/Reviewed/Updated: Yes - My Orders Last 24 Hours: My Active Orders 04/11/18 08:00 Ibuprofen [Motrin] 800 mg PO Q8H PRN - Assessment Assessment:: 28yo P1 s/p primary LTCS POD 2 - Plan Plan:: Discharge home today
[2018-04-12] MEDS ORDERED: Acetaminophen 500 MG Tab PO ONE (08:58)
[2018-04-12] MEDS: Docusate Sodium 100 MG Cap PO SCH (09:13)
== END 2018-04-12 11:20 | disposition home or self-care (01) | DRG 540 ==
LOC: MW.OBCHECK 00:03 → MW.OB 00:06 → MW.OBCHECK 00:28 → MW.OB 00:28 → OBSVTOIN 04-10 00:59 → MW.OB 04-10 04:20
PROVIDERS: ADMIT Obstetrics & Gynecology; ATTEND Obstetrics & Gynecology
PROC: 10D00Z1 Extraction of Products of Conception, Low, Open Approach (ICD-10-PCS; principal; 2018-04-10)
PROC: 3E0P7VZ Introduction of Hormone into Female Reproductive, Via Natural or Artificial Opening (ICD-10-PCS; 2018-04-10)
PROC: 10907ZC Drainage of Amniotic Fluid, Therapeutic from Products of Conception, Via Natural or Artificial Opening (ICD-10-PCS; 2018-04-10)
PROC: 4A1H7CZ Monitoring of Products of Conception, Cardiac Rate, Via Natural or Artificial Opening (ICD-10-PCS; 2018-04-10)
DX: O48.0 Post-term pregnancy (principal); O41.1230 Chorioamnionitis, third trimester, not applicable or unspecified; O76 Abnormality in fetal heart rate and rhythm complicating labor and delivery; O63.1 Prolonged second stage (of labor); Z3A.41 41 weeks gestation of pregnancy; Z37.0 Single live birth
CPT/HCPCS: 36415; 51702; 59025; 59200; 85014; 85018; 85027; 86850; 86900; 86901; 88307; A9270-GY; J0131; J0290; J0295; J1580; J1885; J2250; J2274; J2405; J2590; J2704; J2795; J3010; J3490; J7030; J7050; J7120

== ENCOUNTER 2019-06-04 05:25 | Inpatient (IN) | payer BC ==
[2019-06-04] MEDS ORDERED: Citric Acid/Sodium Citrate Solution 30 ML Cup PO ONE (05:28)
[2019-06-04] MEDS ORDERED: ceFAZolin 2 GM in Premix Bag 1 BAG IV ONE (05:28)
[2019-06-04] MEDS ORDERED: Sodium Chloride 0.9% 2.5 ML Syringe FLUSH PRN (05:28)
[2019-06-04] MEDS ORDERED: Sodium Chloride 0.9% 10 ML Syringe FLUSH PRN (05:28)
[2019-06-04] MEDS ORDERED: Sodium Chloride 0.9% 10 ML SDV IV PRN (05:28)
[2019-06-04] MEDS ORDERED: Oxytocin/0.9 % Sodium Chloride 30 UNIT/500 ML BAG IV SCH (05:30)
[2019-06-04] MEDS: Lactated Ringers 1,000 ML IV SCH ×3 (06:20→07:32)
--- NOTE | 2019-06-04 06:41 | PCM.PREANE ---
Preanesthetic Assessment - Anesthesia/Transfusion/Family Hx Anesthesia History: Prior Anesthesia Without Reaction Family History of Anesthesia Reaction: No Transfusion History: Unknown Type of Transfusion Reactions: Reports: Other (see below) Other Type of Transfusion Reaction: hx of iron transfusion with reaction to ferumoxytol Intubation History: Unknown - Review of Systems General: No Symptoms Pulmonary: No Symptoms Cardiovascular: No Symptoms Gastrointestinal: No Symptoms Neurological: No Symptoms Other: Reports: None - Physical Assessment Height: 5 ft 7 in Weight: 95.708 kg ASA Class: 2 Mental Status: Alert & Oriented x3 Airway Class: Mallampati = 2 Dentition: Reports: Normal Dentition Thyro-Mental Finger Breadths: 3 Mouth Opening Finger Breadths: 3 ROM/Head Extension: Full Lungs: Clear to Auscultation, Normal Respiratory Effort Cardiovascular: Regular Rate, Regular Rhythm - Lab Values: Laboratory Last Values WBC 6.83 K/uL (4.0-11.0) 06/04/19 06:15 RBC 4.49 M/uL (4.30-5.90) 06/04/19 06:15 Hgb 12.4 g/dL (12.0-16.0) 06/04/19 06:15 Hct 38.1 % (36.0-46.0) 06/04/19 06:15 MCV 84.9 fL (80.0-98.0) 06/04/19 06:15 MCH 27.6 pg (27.0-32.0) 06/04/19 06:15 MCHC 32.5 g/dL (31.0-37.0) 06/04/19 06:15 RDW Std Deviation 62.2 fl (28.0-62.0) H 06/04/19 06:15 RDW Coeff of Naveen 20 % (11.0-15.0) H 06/04/19 06:15 Plt Count 163 K/uL (150-400) 06/04/19 06:15 MPV 9.80 fL (7.40-12.00) 06/04/19 06:15 Nucleated RBC % 0.0 /100WBC 06/04/19 06:15 Nucleated RBCs # 0 K/uL 06/04/19 06:15 - Allergies Allergies/Adverse Reactions: Allergies Allergy/AdvReac Type Severity Reaction Status Date / Time ferumoxytol Allergy lightheaded/throat Verified 05/28/19 16:13 closes up - Blood Blood Available: No - Anesthesia Plan Pre-Op Medication Ordered: None - Acknowledgements Anesthesia Type Planned: Spinal (general anesthesia back-up plan) Pt an Appropriate Candidate for the Planned Anesthesia: Yes Alternatives and Risks of Anesthesia Discussed w Pt/Guardian: Yes Pt/Guardian Understands and Agrees with Anesthesia Plan: Yes PreAnesthesia Questionnaire HEENT History: Reports: None Cardiovascular History: Reports: None Respiratory History: Reports: None Gastrointestinal History: Reports: Other (See Below) Other Gastrointestinal History: heartburn during Genitourinary History: Reports: None 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: Reports: Musculoskeletal History: Reports: None Neurological History: Reports: Seizure Other Neuro History: seizure due to dehydration in 2016, none since Psychiatric History: Reports: None Endocrine/Metabolic History: Reports: None Hematologic History: Reports: Iron Deficiency Other Hematologic History: hx iron transfusion, blood transfusion unknown, states may have had transfusion after but not sure Immunologic History: Reports: None Oncologic (Cancer) History: Reports: None Dermatologic History: Reports: None - Past Surgical History Head Surgeries/Procedures: Reports: None HEENT Surgical History: Reports: Myringotomy w Tube(s), Oral Surgery Other HEENT Surgeries/Procedures: tubes x5 in ears, wisdom teeth extraction Cardiovascular Surgical History: Reports: None Respiratory Surgical History: Reports: None GI Surgical History: Reports: None Female Surgical History: Reports: Section (last year under epidural anesthesia) Endocrine Surgical History: Reports: None Neurological Surgical History: Reports: None Musculoskeletal Surgical History: Reports: None Oncologic Surgical History: Reports: None Dermatological Surgical History: Reports: None - SUBSTANCE USE Smoking Status *Q: Never Smoker Recreational Drug Use History: No - HOME MEDS Home Medications: Home Meds PNV95/Ferrous Fumarate/FA [ Tablet] 1 tab PO DAILY 04/09/18 [History] Ascorbate Calcium [Vitamin C] 500 mg PO DAILY 05/28/19 [History] Calcium Carbonate [Tums] 1 tab CHEW ASDIRECTED PRN 05/28/19 [History] Ferrous Sulfate [Slow Release Iron] 1 tab PO DAILY 05/28/19 [History] - CURRENT (IN HOUSE) MEDS Current Meds: Current Medications Lactated Ringer's (Ringers, Lactated) 1,000 mls @ 500 mls/hr IV BOLUS SHANNA Last Admin: 06/04/19 06:20 Dose: 999 mls/hr Oxytocin/Sodium Chloride (Oxytocin 30 Unit/500 Ml-Ns) 30 unit in 500 mls @ 250 mls/hr IV TITRATE SHANNA Sodium Chloride (Saline Flush) 10 ml FLUSH ASDIRECTED PRN PRN Reason: Keep Vein Open Sodium Chloride (Saline Flush) 2.5 ml FLUSH ASDIRECTED PRN PRN Reason: Keep Vein Open Sodium Chloride (Normal Saline) 10 ml IV ASDIRECTED PRN PRN Reason: IV Use Discontinued Medications Citric Acid/Sodium Citrate (Bicitra Solution) 30 ml PO ONETIME ONE Stop: 06/04/19 05:29 Cefazolin Sodium/Dextrose 2 gm (/ Premix) 50 mls @ 100 mls/hr IV ONETIME ONE Stop: 06/04/19 05:57
[2019-06-04] MEDS ORDERED: Morphine PF 10 MG/10 ML SDV ONE (07:23)
[2019-06-04] MEDS ORDERED: Octyl 2-Cyanoacrylate 1 Tube ONE (07:43)
[2019-06-04] MEDS ORDERED: Ondansetron 4 MG/2 ML SDV ONE (07:54)
[2019-06-04] MEDS ORDERED: Oxytocin 10 Units/1 ML SDV ONE (07:58)
[2019-06-04] MEDS ORDERED: ceFAZolin 1 GM Vial ONE (08:13)
[2019-06-04] MEDS ORDERED: Ketorolac 30 MG/ML SDV ONE (08:55)
[2019-06-04] MEDS: Ketorolac 30 MG/ML SDV IVPUSH SCH ×3 (09:00→22:00)
[2019-06-04] MEDS ORDERED: diphenhydrAMINE 50 MG/ML SDV IVPUSH PRN ×2 (09:16→09:40)
[2019-06-04] MEDS ORDERED: Nalbuphine 10 MG/1 ML Vial IVPUSH PRN (09:16)
[2019-06-04] MEDS ORDERED: Acetaminophen/oxyCODONE 325-5 MG Tab PO PRN ×2 (09:16→09:40)
[2019-06-04] MEDS ORDERED: fentaNYL 100 MCG/2 ML SDV IVPUSH PRN (09:16)
[2019-06-04] MEDS ORDERED: Ondansetron 4 MG/2 ML SDV IVPUSH PRN ×2 (09:16→09:40)
[2019-06-04] MEDS ORDERED: Naloxone 0.4 MG/ML Syringe IVPUSH PRN (09:16)
[2019-06-04] MEDS ORDERED: Bisacodyl 10 MG Supp RECTAL PRN (09:40)
[2019-06-04] MEDS ORDERED: Lanolin 100% Cream 7 GM Tube TOP PRN (09:40)
[2019-06-04] MEDS ORDERED: Ibuprofen 800 MG Tab PO PRN (09:40)
[2019-06-04] MEDS ORDERED: Lactated Ringers 1,000 ML IV SCH (09:45)
--- NOTE | 2019-06-04 09:45 | PCM.OPNOTE ---
- General Post-Op/Procedure Note Date of Surgery/Procedure: 06/04/19 Operative Procedure(s): Repeat lower segment transverse Findings: Live male delivered at 830am, 8/9 weight 3560g No adhesion noted Pre Op Diagnosis: 29 yo @ 39w0d for repeat Post-Op Diagnosis: same Anesthesia Technique: Spinal Primary Surgeon: Reji Lee Secondary Surgeon: Yoly Anesthesia Provider: John Dominguez Audio Visual Engineer: MS Suh Fluid Replacement, Intraop: 1,500 Output, Urine Amount: 200 EBL in mLs: 600 Condition: Good
--- NOTE | 2019-06-04 10:13 | PCM.POSTAN ---
POST ANESTHESIA ASSESSMENT - MENTAL STATUS Mental Status: Alert, Oriented - VITAL SIGNS Vital Signs: Last Vital Signs Temp 36.4 C 06/04/19 09:20 Pulse 61 06/04/19 09:50 Resp 13 06/04/19 09:50 BP 102/66 06/04/19 09:50 Pulse Ox 100 06/04/19 09:50 - RESPIRATORY Respiratory Status: Respiratory Rate WNL, Airway Patent, O2 Saturation Stable - CARDIOVASCULAR CV Status: Pulse Rate WNL, Blood Pressure Stable - GASTROINTESTINAL GI Status: No Symptoms - PAIN Pain Score: 0 - POST OP HYDRATION Hydration Status: Adequate & Stable - OBSERVATIONS Free Text/Narrative:: No anesthesia problems
--- NOTE | 2019-06-04 11:08 | OR ---
SURGEON: SUSY RIVERS DATE OF PROCEDURE:06/04/2019 PREOPERATIVE DIAGNOSIS: A 29-year-old, G2, P1, at 39 weeks 0 days, admitted for repeat section. POSTOPERATIVE DIAGNOSIS: A 29-year-old, G2, P1, at 39 weeks 0 days, admitted for repeat section. PROCEDURE: Repeat lower transverse section. IV FLUID: 1600. ESTIMATED BLOOD LOSS: 600. URINE OUTPUT: 200. NOTES AND FINDINGS: A live male delivered at 8:30 a.m. score 8 and 9. Weight is 3560 g. Intraabdominal survey revealed no adhesion. There were normal uterus, tubes, and ovaries that were noted. ANESTHESIA: Spinal. BRIEF HISTORY: She is a 29-year-old, G2, P 1-0-0-1, at 39 weeks, who had a history of previous and desired a repeat. She was explained the risks, benefits, and alternatives. She decided to proceed with repeat and declined a . DESCRIPTION OF PROCEDURE: The patient was taken to the operating room where spinal anesthesia was performed without difficulty. She was prepared and draped in the dorsal supine position with a leftward tilt. A Pfannenstiel skin incision was done at the on the previous incision. Incision was carried down to the fascia with the Bovie. The fascia was incised and extended upwards and laterally. The fascia was from the rectus muscle superiorly and inferiorly. The rectus muscle was at the raphe. The abdomen was then entered in bluntly and expanded to expose the lower uterine segment. A bladder flap was created. Lower uterine incision was also made. The fetus was in cephalic position, was delivered, and with pressure on the fundus, delayed cord clamping was observed. The infant was handed over to the awaiting equipment operator/laborer. The cord blood was obtained and the placenta was delivered by manual massage of the uterine fundus. The uterus was cleaned with moist laparotomy sponges. The uterus was closed in 2 layers. The peritoneum was also approximated. The fascia was also closed with 0 Vicryl. The skin incision was closed with 3- 0 Monocryl on a Massimo needle. All instrument and pad counts were correct x2. The patient tolerated the procedure well and will go to Labor and Delivery room in stable condition. ORLANDO REEVES /[id number] MARLEN
[2019-06-04] MEDS: Docusate Sodium 100 MG Cap PO SCH (21:59)
[2019-06-05] MEDS: Ketorolac 30 MG/ML SDV IVPUSH SCH ×2 (03:49→09:37)
--- NOTE | 2019-06-05 06:53 | PCM48HPAN ---
Post Anesthesia Note - EVALUATION WITHIN 48HRS OF ANESTHETIC Vital Signs in Normal Range: Yes Patient Participated in Evaluation: Yes Respiratory Function Stable: Yes Airway Patent: Yes Cardiovascular Function Stable: Yes Hydration Status Stable: Yes Pain Control Satisfactory: Yes Nausea and Vomiting Control Satisfactory: Yes Mental Status Recovered: Yes Vital Signs: Last Vital Signs Temp 36.4 C 06/05/19 05:02 Pulse 74 06/05/19 05:02 Resp 16 06/05/19 05:02 BP 98/70 06/05/19 05:02 Pulse Ox 94 L 06/05/19 05:02 - COMMENTS/OBSERVATIONS Free Text/Narrative:: No anesthesia problems
--- NOTE | 2019-06-05 08:33 | PCM.PNPP ---
<NedAngeli E - Last Filed: 06/05/19 08:51> - General Info Date of Service: 06/05/19 Admission Dx/Problem (Free Text): Bebe is a 29 yo G2 now P2 s/p repeat at 39 weeks. PPD#1. She is doing well this morning reporting 0/10 pain with the scheduled pain medications. Her milk supply is appropriate and has been successful. Functional Status: Reports: Pain Controlled, Tolerating Diet Pain Score: 0 - Review of Systems General: Reports: Appetite. Denies: Fever, Chills HEENT: Denies: Headaches, Visual Changes Pulmonary: Denies: Shortness of Breath Cardiovascular: Denies: Chest Pain, Edema, Lightheadedness Gastrointestinal: Reports: Abdominal Pain (appropriate s/p ), Flatus ( but no BM yet today). Denies: Nausea, Vomiting Genitourinary: Reports: Other (urinary catheter removed at approximately 0700-- no urination as of yet but will work on today) Neurological: Denies: Confusion, Dizziness, Headache Psychiatric: Reports: No Symptoms - General Info Date of Service: 06/05/19 - Patient Data Vital Signs - Most Recent: Last Vital Signs Temp 36.8 C 06/05/19 08:00 Pulse 73 06/05/19 08:00 Resp 15 06/05/19 08:00 BP 107/61 06/05/19 08:00 Pulse Ox 97 06/05/19 08:00 Weight - Most Recent: 95.708 kg I&O - Last 24 Hours: Intake & Output 06/04/19 06/05/19 06/05/19 22:59 06:59 14:59 Output Total 155 975 Balance -155 -975 Lab Results - Last 24 Hours: Laboratory Results - last 24 hr 06/05/19 Range/Units 06:15 Hgb 11.7 L (12.0-16.0) g/dL Hct 36.3 (36.0-46.0) % Med Orders - Current: Current Medications Bisacodyl (Dulcolax) 10 mg RECTAL ONETIME PRN PRN Reason: Constipation Diphenhydramine HCl (Benadryl) 25 mg IVPUSH Q4H PRN PRN Reason: Itching Stop: 06/05/19 09:16 Diphenhydramine HCl (Benadryl) 25 mg IVPUSH Q6H PRN PRN Reason: Itching or Nausea Docusate Sodium (Colace) 100 mg PO BID [facility] Last Admin: 06/04/19 21:59 Dose: 100 mg Emollient Ointment (Lansinoh Hpa) 0 gm TOP ASDIRECTED PRN PRN Reason: Sore Nipples Fentanyl (Sublimaze) 50 mcg IVPUSH Q1H PRN PRN Reason: Pain (severe 7-10) Lactated Ringer's (Ringers, Lactated) 1,000 mls @ 500 mls/hr IV BOLUS [facility] Last Admin: 06/04/19 07:32 Dose: 999 mls/hr Oxytocin/Sodium Chloride (Oxytocin 30 Unit/500 Ml-Ns) 30 unit in 500 mls @ 250 mls/hr IV TITRATE [facility] Lactated Ringer's (Ringers, Lactated) 1,000 mls @ 125 mls/hr IV ASDIRECTED [facility] Last Infusion: 06/04/19 15:53 Dose: 0 mls/hr Ibuprofen (Motrin) 800 mg PO Q8H PRN PRN Reason: mild pain or fever Ketorolac Tromethamine (Toradol) 30 mg IVPUSH Q6H [facility] Stop: 06/05/19 09:46 Last Admin: 06/05/19 03:49 Dose: 30 mg Nalbuphine HCl (Nubain) 5 mg IVPUSH ASDIRECTED PRN PRN Reason: Itching Naloxone HCl (Narcan) 0.1 mg IVPUSH ONETIME PRN PRN Reason: Respiratory Depression Stop: 06/05/19 09:16 Ondansetron HCl (Zofran) 4 mg IVPUSH Q6H PRN PRN Reason: Nausea Ondansetron HCl (Zofran) 4 mg IVPUSH Q4H PRN PRN Reason: Nausea/Vomiting Oxycodone/Acetaminophen (Percocet 325-5 Mg) 2 tab PO Q6H PRN PRN Reason: Pain (moderate 4-6) Oxycodone/Acetaminophen (Percocet 325-5 Mg) 1 tab PO Q4H PRN PRN Reason: Pain (moderate 4-6) Oxycodone/Acetaminophen (Percocet 325-5 Mg) 2 tab PO Q4H PRN PRN Reason: Pain (moderate 4-6) Sodium Chloride (Saline Flush) 10 ml FLUSH ASDIRECTED PRN PRN Reason: Keep Vein Open Sodium Chloride (Saline Flush) 2.5 ml FLUSH ASDIRECTED PRN PRN Reason: Keep Vein Open Sodium Chloride (Normal Saline) 10 ml IV ASDIRECTED PRN PRN Reason: IV Use Discontinued Medications Cefazolin Sodium (Ancef) Confirm Administered Dose 2 gm .ROUTE .STK-MED ONE Stop: 06/04/19 08:14 Citric Acid/Sodium Citrate (Bicitra Solution) 30 ml PO ONETIME ONE Stop: 06/04/19 05:29 Last Admin: 06/04/19 07:40 Dose: 30 ml Cefazolin Sodium/Dextrose 2 gm (/ Premix) 50 mls @ 100 mls/hr IV ONETIME ONE Stop: 06/04/19 05:57 Last Admin: 06/05/19 07:26 Dose: Not Given Ketorolac Tromethamine (Toradol) Confirm Administered Dose 30 mg .ROUTE .STK- MED ONE Stop: 06/04/19 08:56 Morphine Sulfate (Duramorph Pf) Confirm Administered Dose 10 mg .ROUTE .STK-MED ONE Stop: 06/04/19 07:24 Octyl Cyanoacrylate (Dermabond Advance) Confirm Administered Dose 1 applic .ROUTE .STK-MED ONE Stop: 06/04/19 07:44 Last Admin: 06/05/19 07:26 Dose: Not Given Ondansetron HCl (Zofran) Confirm Administered Dose 4 mg .ROUTE .STK-MED ONE Stop: 06/04/19 07:55 Oxytocin (Pitocin) Confirm Administered Dose 30 unit .ROUTE .STK-MED ONE Stop: 06/04/19 07:59 - Interaction Infant Disposition, : to Nursery Infant Feeding: Breastfed Infant; Nursed Well Support Person: - Recovery Exam Fundal Tone: Firm Fundal Level: At Umbilicus Fundal Placement: Midline Lochia Amount: Scant Lochia Color: Rubra/Red Perineum Description: Intact, Minimal Bruising/Swelling Episiotomy/Laceration: None Urinary Elimination: Voided - Exam General: Alert, Oriented Lungs: Clear to Auscultation, Normal Respiratory Effort Cardiovascular: Regular Rate, Regular Rhythm, No Murmurs GI/Abdominal Exam: Soft, No Distention. No: Non-Tender (tenderness to palpation over incision site) Extremities: No Pedal Edema Neurological: No New Focal Deficit Psy/Mental Status: Alert, Normal Affect, Normal Mood - Problem List Review Problem List Initiated/Reviewed/Updated: Yes - Assessment Assessment:: Bebe is a 29 yo s/p uncomplicated repeat at 39 weeks currently PPD 1. PNC uncomplicated. Patient is currently doing well. - Plan Plan:: 1. Continue to monitor vital signs and signs suggestive of infection. 2. Continue to monitor lochia. 3. Continue Toradol for pain management. 4. Encourage mother-baby bonding. 5. Encourage ambulation, hydration. 6. Continue regular diet. Pelvic rest for 6 weeks. Anticipate discharge tomorrow (06/06/19) <Reji Lee - Last Filed: 06/05/19 19:00> - General Info Functional Status: Reports: Ambulating, Urinating - Patient Data Vital Signs - Most Recent: Last Vital Signs Temp 36.8 C 06/05/19 17:00 Pulse 101 H 06/05/19 17:00 Resp 16 06/05/19 17:00 BP 118/62 06/05/19 17:00 Pulse Ox 97 06/05/19 17:00 I&O - Last 24 Hours: Intake & Output 06/05/19 06/05/19 06/05/19 06:59 14:59 22:59 Output Total 975 230 Balance -975 -230 Lab Results - Last 24 Hours: Laboratory Results - last 24 hr 06/05/19 Range/Units 06:15 Hgb 11.7 L (12.0-16.0) g/dL Hct 36.3 (36.0-46.0) % Med Orders - Current: Current Medications Bisacodyl (Dulcolax) 10 mg RECTAL ONETIME PRN PRN Reason: Constipation Diphenhydramine HCl (Benadryl) 25 mg IVPUSH Q6H PRN PRN Reason: Itching or Nausea Docusate Sodium (Colace) 100 mg PO BID [facility] Last Admin: 06/05/19 09:37 Dose: 100 mg Emollient Ointment (Lansinoh Hpa) 0 gm TOP ASDIRECTED PRN PRN Reason: Sore Nipples Fentanyl (Sublimaze) 50 mcg IVPUSH Q1H PRN PRN Reason: Pain (severe 7-10) Lactated Ringer's (Ringers, Lactated) 1,000 mls @ 500 mls/hr IV BOLUS [facility] Last Admin: 06/04/19 07:32 Dose: 999 mls/hr Oxytocin/Sodium Chloride (Oxytocin 30 Unit/500 Ml-Ns) 30 unit in 500 mls @ 250 mls/hr IV TITRATE [facility] Lactated Ringer's (Ringers, Lactated) 1,000 mls @ 125 mls/hr IV ASDIRECTED [facility] Last Infusion: 06/04/19 15:53 Dose: 0 mls/hr Ibuprofen (Motrin) 800 mg PO Q8H PRN PRN Reason: mild pain or fever Nalbuphine HCl (Nubain) 5 mg IVPUSH ASDIRECTED PRN PRN Reason: Itching Ondansetron HCl (Zofran) 4 mg IVPUSH Q6H PRN PRN Reason: Nausea Ondansetron HCl (Zofran) 4 mg IVPUSH Q4H PRN PRN Reason: Nausea/Vomiting Oxycodone/Acetaminophen (Percocet 325-5 Mg) 2 tab PO Q6H PRN PRN Reason: Pain (moderate 4-6) Oxycodone/Acetaminophen (Percocet 325-5 Mg) 1 tab PO Q4H PRN PRN Reason: Pain (moderate 4-6) Last Admin: 06/05/19 17:37 Dose: 1 tab Oxycodone/Acetaminophen (Percocet 325-5 Mg) 2 tab PO Q4H PRN PRN Reason: Pain (moderate 4-6) Sodium Chloride (Saline Flush) 10 ml FLUSH ASDIRECTED PRN PRN Reason: Keep Vein Open Sodium Chloride (Saline Flush) 2.5 ml FLUSH ASDIRECTED PRN PRN Reason: Keep Vein Open Sodium Chloride (Normal Saline) 10 ml IV ASDIRECTED PRN PRN Reason: IV Use Discontinued Medications Cefazolin Sodium (Ancef) Confirm Administered Dose 2 gm .ROUTE .STK-MED ONE Stop: 06/04/19 08:14 Citric Acid/Sodium Citrate (Bicitra Solution) 30 ml PO ONETIME ONE Stop: 06/04/19 05:29 Last Admin: 06/04/19 07:40 Dose: 30 ml Diphenhydramine HCl (Benadryl) 25 mg IVPUSH Q4H PRN PRN Reason: Itching Stop: 06/05/19 09:16 Cefazolin Sodium/Dextrose 2 gm (/ Premix) 50 mls @ 100 mls/hr IV ONETIME ONE Stop: 06/04/19 05:57 Last Admin: 06/05/19 07:26 Dose: Not Given Ketorolac Tromethamine (Toradol) Confirm Administered Dose 30 mg .ROUTE .STK- MED ONE Stop: 06/04/19 08:56 Ketorolac Tromethamine (Toradol) 30 mg IVPUSH Q6H [facility] Stop: 06/05/19 09:46 Last Admin: 06/05/19 09:37 Dose: 30 mg Morphine Sulfate (Duramorph Pf) Confirm Administered Dose 10 mg .ROUTE .STK-MED ONE Stop: 06/04/19 07:24 Naloxone HCl (Narcan) 0.1 mg IVPUSH ONETIME PRN PRN Reason: Respiratory Depression Stop: 06/05/19 09:16 Octyl Cyanoacrylate (Dermabond Advance) Confirm Administered Dose 1 applic .ROUTE .STK-MED ONE Stop: 06/04/19 07:44 Last Admin: 06/05/19 07:26 Dose: Not Given Ondansetron HCl (Zofran) Confirm Administered Dose 4 mg .ROUTE .STK-MED ONE Stop: 06/04/19 07:55 Oxytocin (Pitocin) Confirm Administered Dose 30 unit .ROUTE .STK-MED ONE Stop: 06/04/19 07:59 - Exam Wound/Incisions: Dressing Dry and Intact (pfannestiel skin incision ) - Problem List & Annotations (1) S/P primary low transverse SNOMED Code(s): 748074419, [id number], 672865622, 278488703, 181392339 Code(s): Z98.891 - HISTORY OF UTERINE SCAR FROM PREVIOUS SURGERY Status: Acute Current Visit: No - Problem List Review Problem List Initiated/Reviewed/Updated: Yes - My Orders Last 24 Hours: My Active Orders 06/04/19 21:00 Docusate Sodium [Colace] 100 mg PO BID - Assessment Assessment:: 29yo P2 s/p repeat , POD 1 ambulating , voiding and tolerating regular diet , Normal lochia , Pumping OPositive mother with with paris positive - Plan Plan:: Pain control as needed Routine care Venodynes Incentive spirometry
[2019-06-05] MEDS: Docusate Sodium 100 MG Cap PO SCH ×2 (09:37→22:28)
[2019-06-05] MEDS: Acetaminophen/oxyCODONE 325-5 MG Tab PO PRN ×2 (17:37→22:28)
--- NOTE | 2019-06-06 05:51 | PCM.PNPP ---
- General Info Date of Service: 06/06/19 Admission Dx/Problem (Free Text): 29yo P2 s/p repeat POD2 , denies any complains , ambulating , voiding and tolerating regular diet Functional Status: Reports: Pain Controlled, Tolerating Diet, Ambulating, Urinating - Review of Systems General: Reports: No Symptoms HEENT: Reports: No Symptoms Pulmonary: Reports: No Symptoms Cardiovascular: Reports: No Symptoms Gastrointestinal: Reports: No Symptoms Genitourinary: Reports: No Symptoms Musculoskeletal: Reports: No Symptoms Skin: Reports: No Symptoms Neurological: Reports: No Symptoms Psychiatric: Reports: No Symptoms - General Info Date of Service: 06/06/19 - Patient Data Vital Signs - Most Recent: Last Vital Signs Temp 36.7 C 06/06/19 04:00 Pulse 99 06/06/19 04:00 Resp 16 06/06/19 04:00 BP 117/79 06/06/19 04:00 Pulse Ox 98 06/06/19 04:00 Weight - Most Recent: 95.708 kg I&O - Last 24 Hours: Intake & Output 06/05/19 06/05/19 06/06/19 14:59 22:59 06:59 Output Total 230 Balance -230 Lab Results - Last 24 Hours: Laboratory Results - last 24 hr 06/05/19 Range/Units 06:15 Hgb 11.7 L (12.0-16.0) g/dL Hct 36.3 (36.0-46.0) % Med Orders - Current: Current Medications Bisacodyl (Dulcolax) 10 mg RECTAL ONETIME PRN PRN Reason: Constipation Diphenhydramine HCl (Benadryl) 25 mg IVPUSH Q6H PRN PRN Reason: Itching or Nausea Docusate Sodium (Colace) 100 mg PO BID [facility] Last Admin: 06/05/19 22:28 Dose: 100 mg Emollient Ointment (Lansinoh Hpa) 0 gm TOP ASDIRECTED PRN PRN Reason: Sore Nipples Fentanyl (Sublimaze) 50 mcg IVPUSH Q1H PRN PRN Reason: Pain (severe 7-10) Lactated Ringer's (Ringers, Lactated) 1,000 mls @ 500 mls/hr IV BOLUS [facility] Last Admin: 06/04/19 07:32 Dose: 999 mls/hr Oxytocin/Sodium Chloride (Oxytocin 30 Unit/500 Ml-Ns) 30 unit in 500 mls @ 250 mls/hr IV TITRATE [facility] Lactated Ringer's (Ringers, Lactated) 1,000 mls @ 125 mls/hr IV ASDIRECTED [facility] Last Infusion: 06/04/19 15:53 Dose: 0 mls/hr Ibuprofen (Motrin) 800 mg PO Q8H PRN PRN Reason: mild pain or fever Nalbuphine HCl (Nubain) 5 mg IVPUSH ASDIRECTED PRN PRN Reason: Itching Ondansetron HCl (Zofran) 4 mg IVPUSH Q6H PRN PRN Reason: Nausea Ondansetron HCl (Zofran) 4 mg IVPUSH Q4H PRN PRN Reason: Nausea/Vomiting Oxycodone/Acetaminophen (Percocet 325-5 Mg) 2 tab PO Q6H PRN PRN Reason: Pain (moderate 4-6) Oxycodone/Acetaminophen (Percocet 325-5 Mg) 1 tab PO Q4H PRN PRN Reason: Pain (moderate 4-6) Last Admin: 06/05/19 22:28 Dose: 1 tab Oxycodone/Acetaminophen (Percocet 325-5 Mg) 2 tab PO Q4H PRN PRN Reason: Pain (moderate 4-6) Sodium Chloride (Saline Flush) 10 ml FLUSH ASDIRECTED PRN PRN Reason: Keep Vein Open Sodium Chloride (Saline Flush) 2.5 ml FLUSH ASDIRECTED PRN PRN Reason: Keep Vein Open Sodium Chloride (Normal Saline) 10 ml IV ASDIRECTED PRN PRN Reason: IV Use Discontinued Medications Cefazolin Sodium (Ancef) Confirm Administered Dose 2 gm .ROUTE .STK-MED ONE Stop: 06/04/19 08:14 Citric Acid/Sodium Citrate (Bicitra Solution) 30 ml PO ONETIME ONE Stop: 06/04/19 05:29 Last Admin: 06/04/19 07:40 Dose: 30 ml Diphenhydramine HCl (Benadryl) 25 mg IVPUSH Q4H PRN PRN Reason: Itching Stop: 06/05/19 09:16 Cefazolin Sodium/Dextrose 2 gm (/ Premix) 50 mls @ 100 mls/hr IV ONETIME ONE Stop: 06/04/19 05:57 Last Admin: 06/05/19 07:26 Dose: Not Given Ketorolac Tromethamine (Toradol) Confirm Administered Dose 30 mg .ROUTE .STK- MED ONE Stop: 06/04/19 08:56 Ketorolac Tromethamine (Toradol) 30 mg IVPUSH Q6H [facility] Stop: 06/05/19 09:46 Last Admin: 06/05/19 09:37 Dose: 30 mg Morphine Sulfate (Duramorph Pf) Confirm Administered Dose 10 mg .ROUTE .STK-MED ONE Stop: 06/04/19 07:24 Naloxone HCl (Narcan) 0.1 mg IVPUSH ONETIME PRN PRN Reason: Respiratory Depression Stop: 06/05/19 09:16 Octyl Cyanoacrylate (Dermabond Advance) Confirm Administered Dose 1 applic .ROUTE .STK-MED ONE Stop: 06/04/19 07:44 Last Admin: 06/05/19 07:26 Dose: Not Given Ondansetron HCl (Zofran) Confirm Administered Dose 4 mg .ROUTE .STK-MED ONE Stop: 06/04/19 07:55 Oxytocin (Pitocin) Confirm Administered Dose 30 unit .ROUTE .STK-MED ONE Stop: 06/04/19 07:59 - Interaction Infant Disposition, : to Nursery Feeding: Breastfed Infant; Nursed Well Support Person: - Recovery Exam Fundal Tone: Firm Fundal Level: 1 Fingerbreadths Below Umbilicus Fundal Placement: Midline Lochia Amount: Scant Lochia Color: Rubra/Red Perineum Description: Intact, Minimal Bruising/Swelling Episiotomy/Laceration: None Urinary Elimination: Voided - Exam General: Alert HEENT: Pupils Equal Neck: Supple Lungs: Clear to Auscultation Cardiovascular: Regular Rate, Regular Rhythm GI/Abdominal Exam: Normal Bowel Sounds Extremities: Normal Inspection Wound/Incisions: Dressing Dry and Intact (Pfannestiel skin incision c/d/i) Neurological: No New Focal Deficit Psy/Mental Status: Alert - Problem List & Annotations (1) S/P primary low transverse SNOMED Code(s): 190437960, 77295713, 084564622, 392977735, 127064982 Code(s): Z98.891 - HISTORY OF UTERINE SCAR FROM PREVIOUS SURGERY Status: Acute Current Visit: No - Problem List Review Problem List Initiated/Reviewed/Updated: Yes - Assessment Assessment:: 29yo P2 s/p repeat , POD 2 ambulating , voiding and tolerating regular diet , Normal lochia , - Plan Plan:: Discharge home today if is cleared to go home
[2019-06-06] MEDS: Acetaminophen/oxyCODONE 325-5 MG Tab PO PRN (09:36)
== END 2019-06-06 15:25 | disposition home or self-care (01) | DRG 540 ==
LOC: MW.OB 05:25
PROVIDERS: ADMIT Obstetrics & Gynecology; ATTEND Obstetrics & Gynecology
PROC: 10D00Z1 Extraction of Products of Conception, Low, Open Approach (ICD-10-PCS; principal; 2019-06-04)
DX: O34.211 Maternal care for low transverse scar from previous cesarean delivery (principal); Z3A.39 39 weeks gestation of pregnancy; Z37.0 Single live birth
CPT/HCPCS: 36415; 85014; 85018; 85027; 86593; 86850; 86900; 86901; A9270-GY; J0690; J1885; J2270; J2405; J2590; J7120

== ENCOUNTER 2022-05-10 05:24 | Inpatient (IN) | payer BC ==
[2022-05-10] MEDS ORDERED: Tranexamic Acid 1,000 MG in Sodium Chloride 0.9% 100 ML IV PRN ×2 (05:49→09:30)
[2022-05-10] MEDS ORDERED: Citric Acid/Sodium Citrate Solution 30 ML Cup PO ONE (05:49)
[2022-05-10] MEDS ORDERED: Lidocaine 1% 50 ML MDV INJECT PRN (05:49)
[2022-05-10] MEDS ORDERED: Sodium Chloride 0.9% 10 ML Syringe FLUSH PRN (05:49)
[2022-05-10] MEDS ORDERED: Misoprostol 200 MCG Tab PO PRN (05:49)
[2022-05-10] MEDS ORDERED: Carboprost Tromethamine 250 MCG/1 ML Amp IM PRN (05:49)
[2022-05-10] MEDS ORDERED: Sodium Chloride 0.9% 2.5 ML Syringe FLUSH PRN (05:49)
[2022-05-10] MEDS ORDERED: Methylergonovine 0.2 MG/1 ML Amp IM PRN (05:49)
[2022-05-10] MEDS ORDERED: Sodium Chloride 0.9% 20 ML SDV IV PRN (05:49)
[2022-05-10] MEDS ORDERED: Water For Irrigation,Sterile 1,000 ML Container IRR PRN (05:49)
[2022-05-10] MEDS ORDERED: Butorphanol 1 MG/ML SDV IVPUSH PRN (05:49)
[2022-05-10] MEDS ORDERED: Lactated Ringers 1,000 ML IV SCH ×2 (06:00→09:30)
[2022-05-10] MEDS ORDERED: Oxytocin/0.9 % Sodium Chloride 30 UNIT/500 ML BAG IV SCH ×3 (06:00→09:30)
[2022-05-10] MEDS: Lactated Ringers 1,000 ML IV SCH ×2 (06:35→07:34)
[2022-05-10] MEDS ORDERED: Lidocaine 2% 5 ML SDV ONE (06:45)
[2022-05-10] MEDS ORDERED: fentaNYL 100 MCG/2 ML SDV ONE (06:45)
[2022-05-10] MEDS ORDERED: Morphine PF 10 MG/10 ML SDV ONE (06:45)
[2022-05-10] MEDS ORDERED: Ondansetron 4 MG/2 ML SDV ONE ×2 (06:46→06:47)
[2022-05-10] MEDS ORDERED: Phenylephrine 1% 10 MG/ML SDV ONE ×2 (06:47)
[2022-05-10] MEDS ORDERED: Oxytocin 10 Units/1 ML SDV ONE ×4 (06:47→08:26)
[2022-05-10] MEDS ORDERED: ceFAZolin 1 GM Vial ONE ×2 (06:47)
[2022-05-10] MEDS ORDERED: Dexamethasone 4 MG/ML 5 ML MDV ONE (06:47)
[2022-05-10] MEDS ORDERED: ceFAZolin 2 GM in Premix Bag 1 BAG IV ONE (07:00)
[2022-05-10] MEDS ORDERED: Acetaminophen/oxyCODONE 325-5 MG Tab PO PRN ×3 (07:06→09:30)
[2022-05-10] MEDS ORDERED: ePHEDrine 50 MG/ML SDV IVPUSH PRN (07:06)
[2022-05-10] MEDS ORDERED: HYDROmorphone 1 MG/ML Syringe IVPUSH PRN (07:06)
[2022-05-10] MEDS ORDERED: Metoclopramide 10 MG/2 ML SDV IVPUSH PRN (07:06)
[2022-05-10] MEDS ORDERED: fentaNYL 50 MCG/ML SDV IVPUSH PRN (07:06)
[2022-05-10] MEDS ORDERED: Albuterol 0.083% 2.5 MG/3 ML Neb Soln NEB PRN (07:06)
[2022-05-10] MEDS ORDERED: Naloxone 0.4 MG/ML SDV IVPUSH PRN (07:06)
[2022-05-10] MEDS ORDERED: Ondansetron 4 MG/2 ML SDV IVPUSH PRN ×3 (07:06→09:30)
[2022-05-10] MEDS ORDERED: fentaNYL 100 MCG/2 ML SDV IVPUSH PRN (07:06)
[2022-05-10] MEDS ORDERED: diphenhydrAMINE 50 MG/ML SDV IVPUSH PRN ×2 (07:06→09:30)
[2022-05-10] MEDS ORDERED: Phenylephrine HCl In 0.9% NaCl 1 MG/10 ML Vial IVPUSH SCH (07:15)
[2022-05-10] MEDS ORDERED: Metoclopramide 10 MG/2 ML SDV ONE (07:35)
[2022-05-10] MEDS ORDERED: Ropivacaine 0.5% 5 MG/ML 30 ML SDV ONE (07:46)
[2022-05-10] MEDS ORDERED: Tranexamic Acid 1,000 MG/10 ML Vial ONE (08:08)
[2022-05-10] MEDS ORDERED: Phenylephrine HCl In 0.9% NaCl 1 MG/10 ML Vial ONE (08:54)
[2022-05-10] MEDS ORDERED: Misoprostol 200 MCG Tab RECTAL PRN (09:30)
[2022-05-10] MEDS ORDERED: Oxytocin 10 Units/1 ML SDV IM PRN (09:30)
[2022-05-10] MEDS ORDERED: Lanolin 100% Cream 7 GM Tube TOP PRN (09:30)
[2022-05-10] MEDS ORDERED: Bisacodyl 10 MG Supp RECTAL PRN (09:30)
[2022-05-10] MEDS ORDERED: Calcium Carbonate 500 MG Tab.Chew PO PRN (09:33)
[2022-05-10] MEDS ORDERED: Zinc Gluconate [Zinc] 30 MG Tablet PO PRN (09:33)
[2022-05-10] MEDS ORDERED: ePHEDrine 50 MG/ML SDV ONE (09:47)
[2022-05-10] MEDS ORDERED: Acetaminophen 1,000 MG in Premix Bag 1 BAG IV ONE (14:20)
[2022-05-10] MEDS: Ketorolac 30 MG/ML SDV IVPUSH SCH ×2 (16:15→22:20)
[2022-05-10] MEDS: Docusate Sodium 100 MG Cap PO SCH (22:20)
[2022-05-11] MEDS: Ketorolac 30 MG/ML SDV IVPUSH SCH (04:11)
[2022-05-11] MEDS ORDERED: Cholecalciferol (Vitamin D3) 10 MCG Tab PO SCH (09:00)
[2022-05-11] MEDS ORDERED: Prenatal Multivitamin with Calcium/Folic Acid/Iron Tab PO SCH (09:00)
[2022-05-11] MEDS ORDERED: Ferrous Sulfate 325 MG Tab PO SCH (09:00)
[2022-05-11] MEDS: Docusate Sodium 100 MG Cap PO SCH (09:35)
[2022-05-11] MEDS ORDERED: Ibuprofen 800 MG Tab PO PRN (15:30)
== END 2022-05-11 12:20 | disposition home or self-care (01) | DRG 540 ==
LOC: MW.OB 05:24
PROVIDERS: ADMIT Obstetrics & Gynecology; ATTEND Obstetrics & Gynecology
PROC: 10D00Z1 Extraction of Products of Conception, Low, Open Approach (ICD-10-PCS; principal; 2022-05-10)
DX: O34.211 Maternal care for low transverse scar from previous cesarean delivery (principal); Z37.0 Single live birth; Z20.822 Contact with and (suspected) exposure to COVID-19; O99.284 Endocrine, nutritional and metabolic diseases complicating childbirth; E61.1 Iron deficiency; Z3A.39 39 weeks gestation of pregnancy
CPT/HCPCS: 01961; 36415; 59025; 64488; 82803; 85014; 85018; 85027; 86592; 86850; 86900; 86901; A9270-GY; J0131; J0690; J1100; J1885; J2274; J2370; J2405; J2590; J2765; J2795; J3010; J7120; U0002